=== PATIENT | female | born 1970 | race Caucasian/White ===

== ENCOUNTER 2018-05-24 12:37 | Emergency (ER) | payer OTHER ==
[~2018-05-24] VITALS: Ht 160 cm; Wt 68.0 kg
[2018-05-24 14:08] VITALS: BP 158/91
[2018-05-24] MEDS ORDERED: CYCL-1 PO (14:24)
== END 2018-05-24 14:40 | disposition home or self-care (01) ==
LOC: ER 12:38
DX: M54.2 Cervicalgia (principal); R20.0 Anesthesia of skin; Z79.899 Other long term (current) drug therapy; V49.9XXA Car occupant (driver) (passenger) injured in unspecified traffic accident, initial encounter; Y93.89 Activity, other specified; Y92.410 Unspecified street and highway as the place of occurrence of the external cause; Y99.8 Other external cause status
CPT/HCPCS: 70450; 72125; 99284